=== PATIENT | female | born 1995 | race Asian ===

== ENCOUNTER 2019-11-26 20:16 | Emergency (ER) | payer SELFPAY ==
[~2019-11-26] VITALS: Ht 142.2 cm; Wt 47.0 kg
[2019-11-26] MEDS ORDERED: ONDANSETRON PF 4 MG/2 ML VIAL. IVP ONE (21:00)
[2019-11-26] MEDS ORDERED: IV NORMAL SALINE 1000ML BAG 1,000 ML IV ONE (21:00)
--- NOTE | 2019-11-26 21:05 | PHYS DOC ---
Past Medical History Past Medical History: No Pertinent History Past Surgical History: No Surgical History Smoking Status: Never Smoker Alcohol Use: None General Adult EDM: Chief Complaint: NAUSEA/VOMITING/DIARRHA HPI: HPI: Patient is a 24 year old female who presents to the ED today complaining of nausea vomiting that began this afternoon as well as feeling fatigued. Patient denies any fever. Denies any abdominal pain. Denies any chance she is pregnan t. Denies any hematemesis. Denies any diarrhea. Review of Systems: Review of Systems: Constitutional: Denies fever or chills. [] Eyes: Denies change in visual acuity. [] HENT: Denies nasal congestion or sore throat. [] Respiratory: Denies cough or shortness of breath. [] Cardiovascular: Denies chest pain or edema. [] GI: Reports nausea and vomiting. Denies abdominal pain, bloody stools or diarrhea. [] : Denies dysuria. [] Musculoskeletal: Denies back pain or joint pain. [] Integument: Denies rash. [] Neurologic: Denies headache, focal weakness or sensory changes. [] Psychiatric: Denies depression or anxiety. [] Heart Score: Risk Factors: Risk Factors: DM, Current or recent (<one month) smoker, HTN, HLP, family history of CAD, obesity. Risk Scores: Score 0 - 3: 2.5% MACE over next 6 weeks - Discharge Home Score 4 - 6: 20.3% MACE over next 6 weeks - Admit for Clinical Observation Score 7 - 10: 72.7% MACE over next 6 weeks - Early Invasive Strategies Current Medications: Current Medications Medications (Trade) Dose Ordered Sig/Radha Start Time Stop Time Status Last Admin Dose Admin Ondansetron HCl (Zofran) 4 mg 1X ONCE 11/26/19 21:00 11/26/19 21:01 UNV Sodium Chloride 1,000 ml @ 1,000 mls/hr 1X ONCE 11/26/19 21:00 11/26/19 21:59 UNV Physical Exam: PE: Constitutional: Well developed, well nourished, no acute distress, non-toxic appearance. [] HENT: Normocephalic, atraumatic, bilateral external ears normal, oropharynx moist, no oral exudates, nose normal. [] Eyes: PERRLA, EOMI, conjunctiva normal, no discharge. [] Neck: Normal range of motion, no tenderness, supple, no stridor. [] Cardiovascular:Heart rate regular rhythm, no murmur [] Lungs & Thorax: Bilateral breath sounds clear to auscultation [] Abdomen: Bowel sounds normal, soft, no tenderness, no masses, no pulsatile masses. [] Skin: Warm, dry, no erythema, no rash. [] Back: No tenderness, no CVA tenderness. [] Extremities: No tenderness, no cyanosis, no clubbing, ROM intact, no edema. [] Neurologic: Alert and oriented X 3, normal motor function, normal sensory function, no focal deficits noted. [] Psychologic: Affect normal, judgement normal, mood normal. [] Current Patient Data: Labs: Laboratory Tests Test 11/26/19 20:47 POC Urine HCG, Qualitative Hcg negative (Negative) Vital Signs: Vital Signs Date Time Temp Pulse Resp B/P (MAP) Pulse Ox O2 Delivery O2 Flow Rate FiO2 11/26/19 20:35 97.8 14 Room Air 97.8 EKG: EKG: [] Radiology/Procedures: Radiology/Procedures: [] Course & Med Decision Making: Course & Med Decision Making Pertinent Labs and Imaging studies reviewed. (See chart for details) This is a 24-year-old female patient presenting to the ED today complaining of nausea vomiting as well as feeling fatigued. Patient denies any abdominal pain. Patient's vitals are stable, temperature is normal. Negative urine hCG, urine analysis negative for infection, CBC with a WBC of 18.6 with a left shift with bandemia. CMP with nothing really acute. CT of the abdomen and pelvic was noted for nonspecific enteritis. Considering patient's white count with bandemia we will start this patient on Cipro and Flagyl. Zofran also prescribed. Instructed to push fluids. Follow-up with PCP in 1 to 2 weeks. Also provided GI for follow-up. Naomi Disclaimer: Naomi Disclaimer: This electronic medical record was generated, in whole or in part, using a voice recognition dictation system. Departure Departure Impression: Primary Impression: Nausea and vomiting Qualified Codes: R11.2 - Nausea with vomiting, unspecified Additional Impression: Enteritis Disposition: HOME, SELF-CARE Condition: STABLE Referrals: NO PCP (PCP) PROPECK,AUGUSTINE S MD follow up in 1 week Patient Instructions: Nausea and Vomiting Additional Instructions: You were evaluated in the emergency room for nausea and vomiting and noted to have enteritis which is infection in the colon. We put you on antibiotics, take them as prescribed to completion. Scripts Dicyclomine Hcl (DICYCLOMINE HCL) 20 Mg Tablet 1 TAB PO TID, #30 TAB 1 Refill Prov: CHIP SPARROW APRN 11/26/19 Ciprofloxacin Hcl (CIPRO) 500 Mg Tablet 1 TAB PO BID for 10 Days, #20 TAB 0 Refills Prov: CHIP SPARROW APRN 11/26/19 Metronidazole (FLAGYL) 500 Mg Tablet 500 MG PO TID, #30 TAB Prov: CHIP SPARROW APRN 11/26/19 Ondansetron (ONDANSETRON ODT) 4 Mg Tab.rapdis 1 TAB PO PRN Q6-8HRS, #16 TAB Prov: CHIP SPARROW APRN 11/26/19 CHIP SPARROW APRN November 26, 2019 21:05
[2019-11-26 21:10] LABS: BILIRUBIN,URINE NEGATIVE (NEG); CLARITY,URINE CLEAR; COLOR,URINE YELLOW; NITRITE,URINE NEGATIVE (NEG); PH,URINE 5.5 (<5.0-8.0); PROTEIN,URINE NEGATIVE (NEG-TRACE); UROBILINOGEN,URINE 0.2 mg/dL (0.2 mg/dL)
[2019-11-26 21:11] LABS: BASO % 0 % (0-3); EOS % 0 % (0-3); HEMATOCRIT 40.2 % (36.0-47.0); HEMOGLOBIN 14.2 g/dL (12.0-15.5); LYMPH # 1.6 x10^3/uL (1.0-4.8); LYMPH % 9 % (24-48); MEAN CORPUSCULAR HEMOGLOBIN 31 pg (25-35); MEAN CORPUSCULAR HGB CONC 35 g/dL (31-37); MEAN CORPUSCULAR VOLUME 87 fL (79-100); MONO # 0.9 x10^3/uL (0.0-1.1); MONO % 5 % (0-9); NEUT % 87 % (31-73); PLATELET COUNT 281 x10^3/uL (140-400); RED BLOOD COUNT 4.63 x10^6/uL (3.50-5.40); RED CELL DISTRIBUTION WIDTH 12.4 % (11.5-14.5); WHITE BLOOD COUNT 18.6 x10^3/uL (4.0-11.0)
[2019-11-26 21:17] LABS: BACTERIA,URINE FEW /HPF (0-FEW); RBC,URINE 0 /HPF (0-2); SQUAMOUS EPITHELIAL CELL,UR MANY /LPF; WBC,URINE 0 /HPF (0-4)
[2019-11-26 21:19] LABS: BARBITURATES NEG (NEG); BENZODIAZEPINES NEG (NEG); CANNABINOIDS NEG (NEG); COCAINE NEG (NEG); METHADONE NEG (NEG); OPIATES NEG (NEG); PHENCYCLIDINE NEG (NEG)
[2019-11-26 21:20] LABS: AMPHETAMINE/METHAMPHETAMINE NEG (NEG)
[2019-11-26 21:25] LABS: CALCIUM 9.3 mg/dL (8.5-10.1); CREATININE 0.8 mg/dL (0.6-1.0); GFR 86.7; POTASSIUM 3.3 mmol/L (3.5-5.1)
[2019-11-26 21:33] LABS: ALBUMIN 4.6 g/dL (3.4-5.0); ALBUMIN/GLOBULIN RATIO 1.2 (1.0-1.7); TOTAL BILIRUBIN 0.4 mg/dL (0.2-1.0); TOTAL PROTEIN 8.5 g/dL (6.4-8.2)
[2019-11-26 21:37] LABS: % BANDS 11 % (0-9); % BASOS 1 % (0-3); % LYMPHS 5 % (24-48); % MONOS 3 % (0-10); % SEGS 80 % (35-66)
[2019-11-26 21:38] LABS: PLT ESTIMATE ADEQUATE (ADEQUATE); TOXIC GRANULATION SLIGHT
[2019-11-26] MEDS ORDERED: IOHEXOL 300 MG/ML 100ML VIAL. IV ONE (21:45)
[2019-11-26] MEDS ORDERED: CONTRAST GIVEN. MC PRN (22:00)
--- NOTE | 2019-11-26 22:17 | RAD ---
PQRS Compliance Statement: One or more of the following individualized dose reduction techniques were utilized for this examination: 1. Automated exposure control 2. Adjustment of the mA and/or kV according to patient size 3. Use of iterative reconstruction technique CT ABD PELV W/ IV CONTRST ONLY Clinical Indication: Reason: n/v / Spl. Instructions: / History: Comparison: None. Technique: Helical CT imaging of the abdomen and pelvis is performed after 75 cc of Omnipaque 300 IV contrast. Oral contrast not administered. Findings: Lung bases are clear. Cardiac size is normal. The liver, gallbladder, spleen, pancreas, adrenal glands, abdominal aorta, and kidneys are normal. Stomach is unremarkable. Multiple loops of small bowel are fluid-filled especially in the pelvis. There is no evidence of small bowel obstruction. Mural enhancement of small bowel loops may be slightly greater than normal. The appendix is normal. There is no colon wall thickening. The urinary bladder is normal. Uterus unremarkable. No pelvic free fluid is identified. No acute bone abnormality. IMPRESSION: There is no small bowel obstruction. There is mildly greater than expected wall enhancement of multiple small bowel loops. Additionally multiple small bowel loops are fluid-filled. These findings suggest a nonspecific enteritis. Electronically signed by: Fahad Gonzalez MD (11/26/2019 10:14 PM) [facility]
[2019-11-26] MEDS ORDERED: ONDA4TAB12 PO (22:36)
[2019-11-26] MEDS ORDERED: CIPR500T94 PO (22:36)
[2019-11-26] MEDS ORDERED: METR500T PO (22:36)
[2019-11-26] MEDS ORDERED: DICY20TA3 PO (22:36)
[2019-11-26 23:02] VITALS: BP 104/66
== END 2019-11-26 23:08 | disposition home or self-care (01) ==
LOC: ER 20:16
DX: K52.9 Noninfective gastroenteritis and colitis, unspecified (principal); R11.2 Nausea with vomiting, unspecified; R53.83 Other fatigue
CPT/HCPCS: 36415; 74177; 80053; 80307; 81001; 81025; 83690; 85007; 85025; 96361; 96374; 99285; G0480; J2405; J7030; Q9967